=== PATIENT | female | born 1930 | race Caucasian/White ===

== ENCOUNTER 2016-10-29 16:43 | Emergency (ER) | payer OTHER ==
[~2016-10-29] VITALS: Ht 149.9 cm; Wt 77.1 kg
[2016-10-29] MEDS ORDERED: CAPTOPRIL PO (16:50)
[2016-10-29] MEDS ORDERED: JANUMET 50-1,01 EACH PO (16:50)
[2016-10-29] MEDS ORDERED: VERAPAMIL ER180 M1 PO (16:50)
[2016-10-29] MEDS ORDERED: LEVOTHYROXINE25 MCG PO (16:51)
[2016-10-29] MEDS ORDERED: TRIAMTERENE-HC1 EAC1 PO (16:51)
[2016-10-29] MEDS ORDERED: VITAMIN D1000 UNIT PO (16:52)
[2016-10-29] MEDS ORDERED: PRESERVISION A1 EAC1 PO (16:53)
--- NOTE | 2016-10-29 17:16 | ED NOSE COMPLAINT ---
History of Present Illness General Chief Complaint: Epistaxis/Nasal Foreign Body Stated Complaint: EPISTAXIS Source: patient Exam Limitations: no limitations Vital Signs & Intake/Output Vital Signs & Intake/Output Vital Signs Date Time Temp Pulse Resp B/P B/P Pulse O2 O2 Flow FiO2 Mean Ox Delivery Rate 10/29 2109 98.2 88 20 140/78 98 Room Air 10/29 1847 98.1 98 18 152/88 94 Room Air 10/29 1645 97.7 107 18 140/92 93 Room Air ED Intake and Output 10/30 0000 10/29 1200 Intake Total 0 Output Total Balance 0 Intake, Oral 0 Patient 170 lb Weight Allergies Coded Allergies: No Known Allergies (10/29/16) Reconcile Medications Augmentin (Augmentin 500-125 Tablet) 500 MG-125 MG TABLET 1 TAB PO BID PRN NOSE BLEED PACKING Captopril 50 MG TABLET 1 CAP PO BID BP (Reported) Cholecalciferol (Vitamin D3) (Vitamin D) 1,000 UNIT TABLET 2.5 TAB PO DAILY SUPPLEMENT (Reported) Levothyroxine Sodium 25 MCG TABLET 1 TAB PO DAILY THYROID (Reported) Sitagliptin Phos/Metformin HCl (Janumet 50-1,000 MG Tablet) 50 MG-1,000 MG TABLET 1 TAB PO BID DM (Reported) Triamterene/Hydrochlorothiazid (Triamterene-Hctz 37.5-25 MG Tb) 37.5 MG-25 MG TABLET 0.5 TAB PO EOD BP (Reported) Verapamil HCl (Verapamil ER) 180 MG TABLET.ER 1 TAB PO DAILY BP (Reported) Vit C/E/Zn/Coppr/Lutein/Zeaxan (Preservision Areds 2 Softgel) 250-200-40 CAPSULE 1 CAP PO BID SUPPLEMENT (Reported) Triage Note: 86 YEAR OLD FEMALE TOER VIA AMBULANCE FROM HER HOME WITH COMPLAINTS OF NOSE BLEED FOR THE PAST 45 MINUTES , PT STATES THAT SHE WAS SEEN BY HER ENT YESTERDAY DUE TO NOSE BLEEDS AND THEY CORTIRISED IT, PT STATES THAT SHE DID HAVE A NOSE BLEED DURING THE NIGHT THAT STOPPED AND WHEN SHE CALLED ENT THIS AM THEY TOLD HER TO PINCH NARES IF IT STARTS AGAIN AND IF BLEEDING DOES NOT STOP AFTER 45 MINUTES TO CALL EMS. NO BLEEDING ON ARRIVAL, LARGE CLOT NOTED IN L NARES. AND BLOOD NOTED ON WASH CLOTH Triage Nurses Notes Reviewed? yes Onset: Abrupt Duration: intermittent Timing: recent history Injury Environment: home Severity: moderate Severity Numbers: 5 HPI: Patient is a 86-year-old female who presents to emergency room stating for the last 6 days patient has had intermittent left nares epistasis. Patient states that symptoms sometimes her paroxysmal however bending over has onset symptoms. Patient was evaluated by primary care doctor yesterday and cauterized the left nares with bleeding had ceased however bleeding recurred today and patient was cauterized however bleeding still continues. Patient does not take any blood thinner medications. Denies any lightheaded sensation dizziness. Patient denies any trauma or nose picking. (CAREY TORREZ) Past History Travel History Traveled to [place] past 21 day No Medical History Any Pertinent Medical History? 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 No (CAREY TORREZ) Review of Systems Review of Systems Constitutional: Reports: no symptoms. EENTM: Reports: see HPI, epistaxis. Respiratory: Reports: no symptoms. Cardiovascular: Reports: no symptoms. GI: Reports: no symptoms. Genitourinary: Reports: no symptoms. Musculoskeletal: Reports: no symptoms. Skin: Reports: no symptoms. Neurological/Psychological: Reports: no symptoms. Hematologic/Endocrine: Reports: see HPI, bleeding. Immunologic/Allergic: Reports: no symptoms. All Other Systems: Reviewed and Negative (CAREY OTRREZ) Physical Exam Physical Exam General Appearance: no apparent distress, alert, comfortable Nose: active bleeding Comments: Well-developed well-nourished person in no acute distress HEENT: extraocular motion intact, no nystagmus. Pupils equally round and reactive to light and accommodation. Nose- noted bilateral nares epistasis. External auditory canal and Tympanic membranes clear. Pharynx normal. No swelling or edema. Neck: Supple, no lymphadenopathy, normal range of motion without pain or tenderness Back: Nontender, no CVA tenderness. Cardiovascular: Regular rate and rhythms no murmurs rubs or gallops, normal JVP Respiratory: Chest nontender. No respiratory distress.breath sounds clear to auscultation bilaterally Abdomen: Soft, nontender nondistended, no appreciable organomegaly. Normal bowel sounds. No ascites Skin: No appreciable rash on exposed skin, skin is warm and dry. Psych: Mood and affect is normal, memory and judgment is normal. (LIO PHILLIPS,CAREY) Progress Differential Diagnoses I considered the following diagnoses in my evaluation of the patient: [ Coagulation disorder, anterior epistasis posterior epistasis NASAL SEPTAL deviation, fracture] Plan of Care: On initial examination patient had mild bilateral nares epistasis. Using direct pressure and gauze for approximately 20 minutes reevaluation the bleeding had stopped 10/29/2016 5:58:17 PM- I asked patient to gently blow nose to remove any clots and WHICH no clots were removed I then removed the direct pressure and gauze and applied thrombin with gauze and applied direct pressure patient will be reevaluated. After the thrombin-soaked gauze was applied for approximately 25 minutes I removed the gauze and patient had mild active bleeding to the left nares. I applied silver nitrate to the bilateral nares regions which ceased the bleeding and after approximately 5 minutes however patient had a significant sneezing episode which unfortunately made patient bleeds from the left nares. The right nares however shows no bleeding. I then discussed with patient to apply a nasal Rhino Rocket to the left nares. Patient had a significant clot removed through her oropharynx in which the nasal Rhino Rocket initial administration had an partially dislodged in which a new nasal Rhino Rocket was applied to the left nares again. My plan was if the Rhino Rocket did not ceased bleeding that I was going to call ENT Patient was evaluated for approximately one hour and noted no active bleeding to either nares. Patient ambulated to the bathroom on multiple occasions and was asymptomatic denies any lightheaded or dizziness sensation. Patient does live in a private residence by herself however and the past 6 days patient has been complaining of intermittent nosebleeds and was concerned to be discharged home. Patient does present with neighbors will also be around for patient's age if needed and I strongly advised patient to have her cellphone around her for any aid needed and the neighbors will come down for assistance. I also advised patient if the nosebleed does recur to apply direct pressure and if bleeding still occurs after approximately 5-10 minutes to return to the emergency room via EMS. Patient's blood pressure was normotensive Patient ambulated again with no symptoms denies any lightheaded sensation or dizziness. And after Rhino Rocket was administered patient had complete cessation of bleeding. I prescribed patient prophylactic antibiotics and strongly advised patient to make an appointment on Tuesday for further evaluation and treatment with her established ENT doctor and possible removal of the Rhino Rocket and she will comply. Patient felt comfortable to return back home. Discussed disposition with Dr. Clarke who agrees The neighbors DID DRIVE patient back home Initial ED EKG: none (CAREY TORREZ) Departure Departure Disposition: HOME OR SELF CARE Condition: Stable Clinical Impression Primary Impression: Bleeding nose Referrals: KARAN RODRIGUEZ,SARIAH (PCP/Family) Additional Instructions: As discussed please try to leave the Rhino Rocket packing in YOU nose at all times UNTIL YOU follow-up with your established ENT doctor. If bleeding reoccurs for more OVER 5-10 minutes AFTER DIRECT PRESSURE HAS BEEN APPLIED, return to the emergency room immediately. If symptoms worsen return to the emergency room. Begin the prescription of Augmentin as directed to prevent infection. Prescriptions waiting at [facility] pharmacy. On Tuesday please follow-up with your established ENT doctor for possible removal of the Rhino Rocket packing and for further evaluation and treatment. If bleeding does recur try to apply direct pressure to stop the bleeding and if the bleeding does not stop return to the emergency room immediately. Departure Forms: Customer Survey General Discharge Information Prescriptions: Current Visit Scripts Augmentin (Augmentin 500-125 Tablet) 1 TAB PO BID PRN NOSE BLEED PACKING #10 TAB (CAREY TORREZ) PA/RN [facility] Co-Sign Statement Statement: ED Attending supervision documentation- [] I saw and evaluated the patient. I have also reviewed all the pertinent lab results and diagnostic results. I agree with the findings and the plan of care as documented in the PA's/RN [facility]'s documentation. [x] I have reviewed the ED Record and agree with the PA's/RN [facility]'s documentation. [] Additions or exceptions (if any) to the PAs/RN [facility]'s note and plan are summarized below: [] (JUSTEN RODRIGUEZ,DIANNA Gonzalez)
[2016-10-29] MEDS ORDERED: AUGMENTIN 500-1 EACH PO (20:58)
[2016-10-29 21:09] VITALS: BP 140/78
== END 2016-10-29 21:10 ==
LOC: ERH 16:43
DX: R04.0 Epistaxis (principal)

== ENCOUNTER 2016-10-30 14:25 | Emergency (ER) | payer OTHER ==
[~2016-10-30 14:25] MED LIST: AUGMENTIN 500-1 EACH PO; CAPTOPRIL PO; JANUMET 50-1,01 EACH PO; LEVOTHYROXINE25 MCG PO; PRESERVISION A1 EAC1 PO; TRIAMTERENE-HC1 EAC1 PO; VERAPAMIL ER180 M1 PO; VITAMIN D1000 UNIT PO
[2016-10-30 16:32] VITALS: BP 132/70
--- NOTE | 2016-10-30 16:33 | ED NOSE COMPLAINT ---
History of Present Illness General Chief Complaint: General Adult Stated Complaint: NOSE BLEED Source: patient Exam Limitations: no limitations Vital Signs & Intake/Output Vital Signs & Intake/Output Vital Signs Date Time Temp Pulse Resp B/P B/P Pulse O2 O2 Flow FiO2 Mean Ox Delivery Rate 10/30 1632 88 18 132/70 95 Room Air 10/30 1613 Room Air 10/30 1448 97.6 105 18 145/75 93 Room Air Room Air Allergies Coded Allergies: No Known Allergies (10/29/16) Reconcile Medications Augmentin (Augmentin 500-125 Tablet) 500 MG-125 MG TABLET 1 TAB PO BID PRN NOSE BLEED PACKING Captopril 50 MG TABLET 1 CAP PO BID BP (Reported) Cholecalciferol (Vitamin D3) (Vitamin D) 1,000 UNIT TABLET 2.5 TAB PO DAILY SUPPLEMENT (Reported) Levothyroxine Sodium 25 MCG TABLET 1 TAB PO DAILY THYROID (Reported) Sitagliptin Phos/Metformin HCl (Janumet 50-1,000 MG Tablet) 50 MG-1,000 MG TABLET 1 TAB PO BID DM (Reported) Triamterene/Hydrochlorothiazid (Triamterene-Hctz 37.5-25 MG Tb) 37.5 MG-25 MG TABLET 0.5 TAB PO EOD BP (Reported) Verapamil HCl (Verapamil ER) 180 MG TABLET.ER 1 TAB PO DAILY BP (Reported) Vit C/E/Zn/Coppr/Lutein/Zeaxan (Preservision Areds 2 Softgel) 250-200-40 CAPSULE 1 CAP PO BID SUPPLEMENT (Reported) Triage Note: TRIAGE: 86 Y/O FEMALE PRESENTS C/O EPISTAXIS LAST NIGHT. ARRIVES WITH RHINO ROCKET IN LEFT NARE. REPORTS WAS INSTRUCTED TO COME BACK IF THERE'S ANY DISCOMFORT OR BLEEDING. NOW REPORTS EPISTAXIS TO RIGHT NARE. Triage Nurses Notes Reviewed? yes HPI: This patient is an 86-year-old female who presented to the emergency department today In by her daughter for evaluation of epistaxis reevaluation. The patient reported that she was seen here in the emergency department yesterday. Prior to coming to the emergency department, she was seen by her ear nose and throat physician at [facility]. Her left naris was cauterized twice, but on her way home from the office she started bleeding profusely again. HEENT the emergency department, thrombin, pressure, and more cauterization was used without relief. They inserted a Rhino Rocket into the left naris. The patient reported, "I just want to make sure that it is not too saturated and it is not falling out." She reported that she had some mild oozing of blood out of her right nare. The patient denied any headaches, visual changes, chest pain, or difficulty breathing. (GAMALIEL RHODES PA-C) Past History Travel History Traveled to [place] past 21 day No Medical History Any Pertinent Medical History? 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 No (GAMALIEL RHODES PA-C) Review of Systems Review of Systems Constitutional: Reports: no symptoms. EENTM: Reports: see HPI. Respiratory: Reports: no symptoms. Cardiovascular: Reports: no symptoms. GI: Reports: no symptoms. Genitourinary: Reports: no symptoms. Musculoskeletal: Reports: no symptoms. Skin: Reports: no symptoms. Neurological/Psychological: Reports: no symptoms. All Other Systems: Reviewed and Negative (GAMALIEL RHODES PA-C) Physical Exam Physical Exam Nose: dried blood noted to the right nare. No active bleeding. Rhino Rocket in place in the left nare. Atraumatic Comments: Well-developed well-nourished person in no acute distress HEENT: Head normocephalic/atraumatic, moist mucous membranes Pupils equally round and reactive to light. Neck: Supple, no lymphadenopathy Back: Normal gait Respiratory: No respiratory distress. Speaking in full sentences Extremity: Normal equal pulses Neuro: Alert oriented x3, cranial nerves II through XII grossly intact. Skin: No appreciable rash on exposed skin, skin is warm and dry. Psych: Mood and affect is normal (GAMALIEL RHODES PA-C) Progress Differential Diagnoses I considered the following diagnoses in my evaluation of the patient: [Epistaxis , hypertension, hypertensive urgency, hypertensive crisis] Plan of Care: This patient is an 86-year-old female who presented for reevaluation of epistaxis. She reported that her right nare has been oozing a mild amount of blood morning. No excessive bleeding. Rhino Rocket is in place in the left nare. Patient is requesting the name of an ENT physician in case she cannot see her physician on Tuesday. Stable for discharge home. Instructed to return for any worsening symptoms or concerns. Initial ED EKG: none (MEAGAN NGO,GAMALIEL) Departure Departure Disposition: HOME OR SELF CARE Condition: Stable Clinical Impression Primary Impression: Mild epistaxis Referrals: SARIAH RUSSO MD (PCP/Family) HOMER QUEEN MD Additional Instructions: Please follow up with either your ear nose and throat physician at [facility], or with the ear nose and throat physician whose information has been provided to you in this packet. Return to the emergency department for any worsening symptoms or concerns. Departure Forms: Customer Survey General Discharge Information (GAMALIEL RHODES PA-C) PA/FUSING MACHINE FEEDER Co-Sign Statement Statement: ED Attending supervision documentation- x I saw and evaluated the patient. I have also reviewed all the pertinent lab results and diagnostic results. I agree with the findings and the plan of care as documented in the PA's/FUSING MACHINE FEEDER's documentation. I have reviewed the ED Record and agree with the PA's/FUSING MACHINE FEEDER's documentation. Additions or exceptions (if any) to the PAs/FUSING MACHINE FEEDER's note and plan are summarized below: [] (ILEANA RODRIGUEZ,ARACELI)
== END 2016-10-30 16:35 ==
LOC: ERH 14:25
DX: R04.0 Epistaxis (principal)

== ENCOUNTER 2016-10-31 11:19 | Emergency (ER) | payer OTHER ==
[~2016-10-31] VITALS: Ht 149.9 cm; Wt 77.1 kg
[2016-10-31 11:22] VITALS: BP 122/64
--- NOTE | 2016-10-31 12:09 | ED GENERAL ADULT ---
History of Present Illness General Chief Complaint: Epistaxis/Nasal Foreign Body Stated Complaint: EPISTAXIS Source: patient Exam Limitations: no limitations Vital Signs & Intake/Output Vital Signs & Intake/Output Vital Signs Date Time Temp Pulse Resp B/P B/P Pulse O2 O2 Flow FiO2 Mean Ox Delivery Rate 10/31 1211 97 10/31 1122 97.3 109 18 122/64 95 Room Air Room Air ED Intake and Output 11/01 0000 10/31 1200 Intake Total Output Total Balance Patient 170 lb Weight Weight Reported by Patient Measurement Method Allergies Coded Allergies: No Known Allergies (10/29/16) Reconcile Medications Augmentin (Augmentin 500-125 Tablet) 500 MG-125 MG TABLET 1 TAB PO BID PRN NOSE BLEED PACKING Captopril 50 MG TABLET 1 CAP PO BID BP (Reported) Cholecalciferol (Vitamin D3) (Vitamin D) 1,000 UNIT TABLET 2.5 TAB PO DAILY SUPPLEMENT (Reported) Levothyroxine Sodium 25 MCG TABLET 1 TAB PO DAILY THYROID (Reported) Sitagliptin Phos/Metformin HCl (Janumet 50-1,000 MG Tablet) 50 MG-1,000 MG TABLET 1 TAB PO BID DM (Reported) Triamterene/Hydrochlorothiazid (Triamterene-Hctz 37.5-25 MG Tb) 37.5 MG-25 MG TABLET 0.5 TAB PO EOD BP (Reported) Verapamil HCl (Verapamil ER) 180 MG TABLET.ER 1 TAB PO DAILY BP (Reported) Vit C/E/Zn/Coppr/Lutein/Zeaxan (Preservision Areds 2 Softgel) 250-200-40 CAPSULE 1 CAP PO BID SUPPLEMENT (Reported) Triage Note: TRIAGE: PATIENT RETURNS FOR C/O THAT RHINO ROCKET IS FALLING OUT. MAKES CLEAR THAT THIS IS HER 3RD VISIT FOR THE SAME. Triage Nurses Notes Reviewed? yes Onset: 2 days Duration: day(s):, constant HPI: 86-year-old female with a history of hypertension, macular degeneration, epistaxis presenting with complaints that the Rhino Rocket that was placed in her left nare for epistaxis 2 days ago has been gradually slipping out. Reports no recurrent epistaxis since the Rhino Rocket was placed. (GENESIS NGO,CRUZ) Past History Travel History Traveled to [place] past 21 day No Medical History Any Pertinent Medical History? 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 No (CRUZ HURTADO PA-C) Review of Systems Review of Systems Constitutional: Reports: no symptoms. EENTM: Reports: epistaxis. Respiratory: Reports: no symptoms. Cardiovascular: Reports: no symptoms. Neurological/Psychological: Denies: headache, weakness. (CRUZ HURTADO PA-C) Physical Exam Physical Exam General Appearance: well developed/nourished, no apparent distress, comfortable Head: atraumatic Ears, Nose, Throat: normal pharynx, No active epistaxis, no OP blood. Respiratory: normal breath sounds, lungs clear Cardiovascular: regular rate/rhythm Core Measures ACS in differential dx? No CVA/TIA Diagnosis: No Severe Sepsis Present: No Septic Shock Present: No (CRUZ HURTADO PA-C) Progress Differential Diagnoses I considered the following diagnoses in my evaluation of the patient: [Anterior versus posterior epistaxis] Plan of Care: Rhino Rocket removed and naris examined, no source of active bleeding on exam. Rhino Rocket now replaced as has been present for 2 days and there is no recurrent bleeding. Instructed to finish course of antibiotics. Instructed to follow-up as scheduled with ENT this week. Initial ED EKG: none (CRUZ HURTADO PA-C) Departure Departure Disposition: HOME OR SELF CARE Condition: Stable Clinical Impression Primary Impression: Epistaxis Referrals: SARIAH RUSSO MD (PCP/Family) Additional Instructions: Do not blow or insert any objects into either nostril. Continue the antibiotics you were prescribed at your prior ED visit. Follow up with ENT tomorrow as scheduled. Return to the ED for any new or worsening symptoms. Departure Forms: Customer Survey General Discharge Information (CRUZ HURTADO PA-C) PA/PRODUCT LINE MANAGER Co-Sign Statement Statement: ED Attending supervision documentation- x I saw and evaluated the patient. I have also reviewed all the pertinent lab results and diagnostic results. I agree with the findings and the plan of care as documented in the PA's/PRODUCT LINE MANAGER's documentation. [] I have reviewed the ED Record and agree with the PA's/PRODUCT LINE MANAGER's documentation. [] Additions or exceptions (if any) to the PAs/PRODUCT LINE MANAGER's note and plan are summarized below: [] (ILEANA RODRIGUEZ,ARACELI) Critical Care Note Critical Care Note Critical Care Time: non-applicable (GENESIS NGO,CRUZ)
== END 2016-10-31 12:10 ==
LOC: ERH 11:19
DX: R04.0 Epistaxis (principal)